=== PATIENT | female | born 1960 | race Caucasian/White ===

== ENCOUNTER 2019-05-22 11:30 | Outpatient (CLI) | payer MEDICARE | END 2019-05-22 12:00 | disposition home or self-care (01) | LOC: D.MAMMO 11:30 | PROVIDERS: ATTEND Emergency Medicine | DX: Z12.31 Encounter for screening mammogram for malignant neoplasm of breast (principal) ==

== ENCOUNTER 2019-06-27 09:00 | Outpatient (CLI) | payer MEDICARE | END 2019-06-27 10:00 | disposition home or self-care (01) | LOC: D.MAMMO 09:00 | PROVIDERS: ATTEND Emergency Medicine | DX: R92.8 Other abnormal and inconclusive findings on diagnostic imaging of breast (principal) ==

== ENCOUNTER → 2019-07-04 12:37 | Outpatient (CLI) | payer MEDICARE ==
--- NOTE | 2019-07-08 09:28 | EC ---
PATIENT:PEGGY BEGUM DATE OF SERVICE: 07/04/19 SEX: F MEDICAL RECORD: [id number] DATE OF : 62 LOCATION:[facility] AGE OF PATIENT: 59 ADMISSION DATE: 07/04/19 REFERRING PHYSICIAN: INTERPRETING PHYSICIAN: VIVIEN BETANCUR MD ECHOCARDIOGRAM REPORT ECHO CHARGES 4 ECHO COMPLETE Date: 07/04/19 CLINICAL DIAGNOSIS: MARFAN SYNDROME H/O CVA'S/PFO CLOSURE/HTN ECHOCARDIOGRAPHIC MEASUREMENTS (adult normal given) AC root (d.<3.7cm) 4.3 cm LV Septum d (<1.2 cm> 1.6 cm Valve Excursion 2.3 cm LV Septum (systole) 1.8 cm Left Atria (s.<4.0cm> 3.9 cm LVPW d(<1.2cm) 1.4 cm RV (d.<2.3cm) 2.4 cm LVPW (sytole) 1.9 cm LV diastole(<5.6CM) 4.1 cm MV E-F(>70mm/sec) cm LV systole 2.3 cm LVOT Diameter 2.3 cm MV exc.(>10mm) cm Est.ejection fraction (50-75%) % DOPPLER: LVIT cm/sec A 59.0 cm/sec E 45.0 cm/sec LA cm/sec RVSP 19.1 mmHg LVOT 98.0 cm/sec AOP1/2T m/s Asc. Ao 102 cm/sec RVOT 66.0 cm/sec RA cm/sec PA 74.0 cm/sec AV Gradient Peak 4.1 mmHg AV Mean 2.5 mmHg AV Area 4.5 cm MV Gradient Peak 2.5 mmHg MV Mean 0.98 mmHg MV Area cm COMMENTS: OP - HC [employer] Operator: Ede SWANSONOE Loss Claim Clerk: 1 Dr. Betancur TAPE# PACS Pericardial Effusion N DATE OF SERVICE: 07/04/2019 PROCEDURE: Echocardiogram. FINDINGS: 1. Left ventricular chamber size is within normal limits. Left ventricular systolic function is normal. Overall ejection fraction estimated at 55%. 2. Left atrium, right atrium, and right ventricular chamber sizes are within normal limits. 3. Valvular structures have normal structure and motion. ECHOCARDIOGRAM REPORT [id number] PEGGY BEGUM 4. Doppler interrogation reveals no significant valvular insufficiency or stenosis. 5. No evidence of pericardial effusion or left ventricular thrombus. Pulmonary systolic pressure is normal at 19 mmHg. 6. Ascending aorta is mildly dilated at 4.3 cm. TRANSINT:[id number] Voice Confirmation ID: [id number] DOCUMENT ID: [id number] VIVIEN BETANCUR MD at 0928 CC: [id number] DICTATION DATE: 07/04/19 1505 RELIGIOUS ACTIVITIES DIRECTOR: 07/04/19 1633 DEP CLI 07/04/19 [place] [id number] [place] [id number]
== END | disposition home or self-care (01) ==
LOC: D.HCCECHO 12:37
PROVIDERS: ATTEND Internal Medicine Interventional Cardiology
DX: I10 Essential (primary) hypertension (principal)

== ENCOUNTER 2020-12-04 20:50 | Outpatient (CLI) | payer MEDICARE | END 2020-12-04 23:59 | disposition home or self-care (01) | LOC: D.MAMMO 20:50 | PROVIDERS: ATTEND Emergency Medicine | DX: Z12.31 Encounter for screening mammogram for malignant neoplasm of breast (principal) ==